=== PATIENT | male | born 1975 | race American Indian/Alaskan Native ===

== ENCOUNTER 2017-01-12 19:57 | Emergency (ER) | payer OTHER ==
[2017-01-12] MEDS ORDERED: TYLENOL PO ONE (20:15)
[2017-01-12 21:10] LABS: Hematocrit 47.3 % (35.5-45.6); Hemoglobin 15.7 gm/dl (11.8-15.2); Mean Corpuscular HGB Conc 33 % (32-34); Mean Corpuscular Hemoglobin 27 pg (28-32); Mean Corpuscular Volume 82 fl (84-94); Platelet Count 189 K/mm3 (140-440); Red Blood Count 5.75 M/mm3 (3.65-5.03); Red Cell Distribution Width 13.5 % (13.2-15.2); White Blood Count 8.7 K/mm3 (4.5-11.0)
[2017-01-12 21:21] LABS: Anion Gap 20 mmol/L; Blood Urea Nitrogen 9 mg/dL (9-20); Calcium 8.9 mg/dL (8.4-10.2); Carbon Dioxide 22 mmol/L (22-30); Chloride 98.5 mmol/L (98-107); Glucose 94 mg/dL (75-100); Potassium 3.8 mmol/L (3.6-5.0); Sodium 137 mmol/L (137-145)
[2017-01-12] MEDS ORDERED: MOTRIN PO ONE (23:03)
--- NOTE | 2017-01-12 23:40 | Emergency Department Report ---
- General Chief Complaint: Dyspnea/Respdistress Stated Complaint: COUGH/BODY ACHES/HEADACHE Time Seen by Provider: 01/12/17 23:07 Source: patient Mode of arrival: Ambulatory Limitations: No Limitations - History of Present Illness Initial Comments: Patient complains of bad cough productive of clear sputum, body aches, headaches slightly improved post Tylenol here at ED. States symptoms ongoing x Friday (3 days). States he feels short of breath when he coughs. States he had brown colored diarrhea this morning, but not anymore. Denies chest pain pressure or discomfort, wheezing, sore throat or painful swallowing, head congestion or facial pain, urinary symptoms. Denies known sick contacts. Reports self tx with Robitussin 3 w/o relif. Last dose taken last night. - Related Data Previous Rx's Medication Instructions Recorded Last Taken Type ALBUTEROL Inhaler [ProAir HFA 1 puff IH Q4HR PRN #1 inha 01/12/17 Unknown Rx Inhaler] Dextromethorphan HBr [Tussin 15 mg PO Q4-6H PRN #1 syrup 01/12/17 Unknown Rx Maximum Strength] Ibuprofen [Motrin] 800 mg PO Q8HR PRN #21 tablet 01/12/17 Unknown Rx Allergies Allergy/AdvReac Type Severity Reaction Status Date / Time No Known Allergies Allergy Verified 01/12/17 20:15 ED Review of Systems ROS: Stated complaint: COUGH/BODY ACHES/HEADACHE Other details as noted in HPI Comment: All other systems reviewed and negative ED Past Medical Hx - Past Medical History Previous Medical History?: No - Surgical History Past Surgical History?: No - Medications Home Medications: Home Medications Medication Instructions Recorded Confirmed Last Taken Type ALBUTEROL Inhaler [ProAir HFA 1 puff IH Q4HR PRN #1 inha 01/12/17 Unknown Rx Inhaler] Dextromethorphan HBr [Tussin 15 mg PO Q4-6H PRN #1 syrup 01/12/17 Unknown Rx Maximum Strength] Ibuprofen [Motrin] 800 mg PO Q8HR PRN #21 tablet 01/12/17 Unknown Rx ED Physical Exam - General Limitations: No Limitations General appearance: alert, in no apparent distress, other (nontoxic appearing) - Head Head exam: Present: atraumatic, normocephalic - Eye Eye exam: Present: normal appearance, PERRL, EOMI. Absent: scleral icterus, conjunctival injection, periorbital swelling, periorbital tenderness - ENT ENT exam: Present: mucous membranes moist, TM's normal bilaterally, normal external ear exam, other (no tenderness over frontal and maxillary sinuses.). Absent: normal orophraynx (b/l erythematous and edematous tonsils. Exudates) - Neck Neck exam: Present: normal inspection, full ROM, lymphadenopathy. Absent: tenderness, meningismus - Respiratory Respiratory exam: Present: normal lung sounds bilaterally. Absent: respiratory distress, wheezes, rales, rhonchi, stridor, chest wall tenderness, accessory muscle use, decreased breath sounds, prolonged expiratory - Cardiovascular Cardiovascular Exam: Present: regular rate, normal rhythm - GI/Abdominal GI/Abdominal exam: Present: soft, normal bowel sounds. Absent: distended, tenderness, organomegaly - Back Exam Back exam: Present: normal inspection, full ROM. Absent: tenderness, CVA tenderness (R), CVA tenderness (L) - Neurological Exam Neurological exam: Present: alert, oriented X3, normal gait, reflexes normal. Absent: motor sensory deficit - Psychiatric Psychiatric exam: Present: normal affect, normal mood - Skin Skin exam: Present: warm, dry, intact, normal color. Absent: rash, cyanosis, diaphoretic, erythema, petechiae, pallor, abrasion, ecchymosis ED Course Vital Signs 01/12/17 01/12/17 01/12/17 20:09 20:18 21:18 Temperature 100.3 F H Pulse Rate 96 H Respiratory 18 18 18 Rate Blood Pressure 121/86 Blood Pressure [Right] O2 Sat by Pulse 98 Oximetry 01/12/17 01/13/17 01/13/17 23:25 00:03 00:07 Temperature 99.0 F Pulse Rate 87 Respiratory 20 20 20 Rate Blood Pressure Blood Pressure 122/83 [Right] O2 Sat by Pulse 98 Oximetry ED Medical Decision Making - Lab Data Result diagrams: 01/12/17 20:38 01/12/17 20:38 Results reviewed. - Differential Diagnosis Acute bronchitis, viral URI. Critical care attestation.: If time is entered above; I have spent that time in minutes in the direct care of this critically ill patient, excluding procedure time. ED Disposition Clinical Impression: Bronchitis URI (upper respiratory infection) Qualifiers: URI type: unspecified viral URI Qualified Code(s): J06.9 - Acute upper respiratory infection, unspecified Disposition: DISCHARGED TO HOME OR SELFCARE Is pt being admited?: No Does the pt Need Aspirin: No Condition: Stable Instructions: Upper Respiratory Infection (ED), Acute Bronchitis (ED) Prescriptions: ALBUTEROL Inhaler [ProAir HFA Inhaler] 1 puff IH Q4HR PRN #1 inha PRN Reason: difficulty breathing Dextromethorphan HBr [Tussin Maximum Strength] 15 mg PO Q4-6H PRN #1 syrup PRN Reason: Cough Ibuprofen [Motrin] 800 mg PO Q8HR PRN #21 tablet PRN Reason: fever/bodyaches Referrals: PRIMARY CARE,MD [Primary Care Provider] - 2-3 Days [facility] [Outside] - 2-3 Days Forms: Work/School Release Form(ED)
[2017-01-13 00:09] VITALS: BP 122/83
== END 2017-01-13 00:20 | disposition home or self-care (01) ==
LOC: ED 19:57
DX: J40 Bronchitis, not specified as acute or chronic (principal); J06.9 Acute upper respiratory infection, unspecified
CPT/HCPCS: 36415; 80048; 85027; 87116; 87400; 87430; 99283